=== PATIENT | female | born 1975 | race Caucasian/White ===

== ENCOUNTER 2020-07-02 21:34 | Emergency (ER) | payer BC ==
--- NOTE | 2020-07-02 21:42 | EDM.PDOC ---
ED HPI GENERAL MEDICAL PROBLEM - General Chief Complaint: Lower Extremity Injury/Pain Stated Complaint: FELL,HURT ANKLE Time Seen by Provider: 07/02/20 21:36 Source of Information: Reports: Patient History Limitations: Reports: No Limitations - History of Present Illness INITIAL COMMENTS - FREE TEXT/NARRATIVE: Patient presents by private vehicle for evaluation of a right ankle injury occurring tonight approximately 2100 hrs. She was outside, heading to her vehicle when she developed a persistent coughing episode and must have had some type of cough syncope event. She came to, was sitting on the ground someone was leaning over her talking to her. She states that her right foot was turned inward and someone who was a first coat sander or supervisor inspection looked at her ankle and apparently gave it some traction and reduced/realigned it. She reports pain as 9/10 at this time. There were no other injuries in the incident. Onset: Today, Sudden Onset Date: 07/02/20 Onset Time: 21:00 Location: Reports: Lower Extremity, Right Severity: Moderate Improves with: Reports: None Worsens with: Reports: Movement right ankle Pain Score (Numeric/FACES): 9 - Related Data Allergies Allergy/AdvReac Type Severity Reaction Status Date / Time No Known Allergies Allergy Verified 07/02/20 21:39 Home Meds: Home Meds NK [No Known Home Meds] 07/02/20 [History] Review of Systems - Review of Systems Review Of Systems: Comprehensive ROS is negative, except as noted in HPI. ED EXAM, GENERAL - Physical Exam Exam: See Below Exam Limited By: No Limitations General Appearance: Moderate Distress Respiratory/Chest: No Respiratory Distress Cardiovascular: Regular Rate, Rhythm Back Exam: Full Range of Motion Extremities: Normal Capillary Refill, Limited Range of Motion (There is pain on palpation over the entire ankle region. Attempts at passive movement of the ankle joint increases pain substantially. The toes are neurovascularly intact.). No: Mottled, Pallor Neurological: Alert ED TRAUMA EXTREMITY PROCEDURES - Splinting Right Lower Extremity Splint Site: Right lower leg Pre-Procedure NV Status: Normal Post-Procedure NV Status: Normal Splint Material: Fiberglass Splint Design: Sugar Tong, Posterior Applied & Form Fitted By: Provider Provider Post-Splint Application NV Check: NV Status Normal Complications: No Course - Vital Signs Last Recorded V/S: Last Vital Signs Temp 36.2 C 07/02/20 21:40 Pulse 82 07/02/20 21:40 Resp 16 07/02/20 21:40 BP 120/54 L 07/02/20 21:40 Pulse Ox 98 07/02/20 21:40 - Orders/Labs/Meds Orders: Active Orders 24 hr Category Date Time Status Ankle Min 3V Rt [CR] Stat Exams 07/02/20 21:42 Ordered Saline Lock Insert [OM.PC] Routine Oth 07/02/20 22:12 Ordered Meds: Medications Discontinued Medications Generic Name Dose Route Start Last Admin Trade Name Matt PRN Reason Stop Dose Admin Morphine Sulfate 8 mg 07/02/20 22:12 07/02/20 22:20 Morphine IVPUSH 07/02/20 22:13 8 mg ONETIME ONE Administration Sodium Chloride 10 ml 07/02/20 22:12 07/02/20 22:21 Saline Flush FLUSH 10 ml ASDIRECTED PRN Administration Keep Vein Open - Re-Assessments/Exams Free Text/Narrative Re-Assessment/Exam: 07/02/20 21:54 X-ray of the right ankle ordered and reviewed by me shows a distal fibula fracture with widening of the mortise in a lateral direction. 07/02/20 22:59 Patient was given 8 mg of morphine sulfate IV prior to splinting. A combination posterior and stirrup splint was applied to the lower leg. See procedure note for specific details. I spoke with orthopedics cotton expert at [facility] in [place]. We will send the images to them to be reviewed. It was felt likely that the patient would need surgery because of the instability of the fracture. They will contact the patient with additional information for follow- up. They recommended that the patient be n.p.o. after midnight except for medication and small amounts of water. She should not bear weight on the leg. They have crutches at home already and she should use them. An [facility] prescription was entered for hydrocodone 5/325 mg, 30 tablets; use as directed. 07/03/20 00:13 Departure - Departure Time of Disposition: 23:10 Disposition: Home, Self-Care 01 Clinical Impression: Fracture of fibula, distal Qualifiers: Encounter type: initial encounter Fracture type: closed Fracture morphology: unspecified fracture morphology Laterality: right Qualified Code(s): S82.831A - Other fracture of upper and lower end of right fibula, initial encounter for closed fracture - Discharge Information Instructions: Tibial and Fibular Fractures Referrals: Debora Lewis PA [Primary Care Provider] - Forms: ED Department Discharge Additional Instructions: Do not put weight on your injured leg. Elevate the leg above your heart, this will seem quite high but it will reduce your pain and swelling. Usually people need to use cushions from the couch as they are the only thing strong enough to keep the leg elevated. Pillows from the bed are not firm enough. Use hydrocodone every 4 hours to keep ahead of the pain. Do not eat or drink anything after midnight tonight in the event that they decide to do surgery on Sunday. You can however take your pain pills with a little bit of water, even after midnight. If you have other regular medication that you take it is okay to take those but do not eat any food after midnight or consume large quantities of other liquids. Orthopedic staff from [facility] in [place] will be in contact with you about the next steps. Return to ER if feeling worse in any way. Sepsis Event Note (ED) - Focused Exam Vital Signs: Vital Signs Temp Pulse Resp BP Pulse Ox 07/02/20 21:40 36.2 C 82 16 120/54 L 98 - My Orders Last 24 Hours: My Active Orders 07/02/20 21:42 Ankle Min 3V Rt [CR] Stat 07/02/20 22:12 Saline Lock Insert [OM.PC] Routine - Assessment/Plan Last 24 Hours: My Active Orders 07/02/20 21:42 Ankle Min 3V Rt [CR] Stat 07/02/20 22:12 Saline Lock Insert [OM.PC] Routine
[2020-07-02] MEDS: Morphine 10 MG/ML Syringe IVPUSH ONE (22:20)
[2020-07-02] MEDS: Sodium Chloride 0.9% 10 ML Syringe FLUSH PRN (22:21)
--- NOTE | 2020-07-05 09:28 | CR ---
Ankle Min 3V Rt CLINICAL HISTORY: Injury FINDINGS: There is a slightly displaced oblique fracture of the distal fibula. There is lateral subluxation of the talus. Talar dome is intact Impression: Displaced fracture distal fibula Lateral subluxation at the tibiotalar joint
== END 2020-07-02 23:29 | disposition home or self-care (01) ==
LOC: JP.ED 21:34
DX: S82.831A Other fracture of upper and lower end of right fibula, initial encounter for closed fracture (principal); R05 Cough; R55 Syncope and collapse; X50.1XXA Overexertion from prolonged static or awkward postures, initial encounter
CPT/HCPCS: 29515; 73610; 96374; 99283; J2270